=== PATIENT | female | born 1950 | race Asian ===

== ENCOUNTER 2023-07-13 12:53 | Emergency (ER) | payer OTHER ==
[~2023-07-13] VITALS: Ht 157.5 cm; Wt 65.8 kg
[2023-07-13 12:56] VITALS: BP 145/84; PULSE 80; RESP 17; TEMP 97.4; O2SAT 98
[2023-07-13 14:39] LABS: BASOPHILS % (AUTO) 0.6 % (0.0-2.0); EOSINOPHILS # (AUTO) 0.1 K/uL (0-0.4); EOSINOPHILS % (AUTO) 1.5 % (0.0-4.0); HEMATOCRIT 36.8 % (36-48); LYMPHOCYTES # (AUTO) 1.7 K/uL (2.5-16.5); LYMPHOCYTES % (AUTO) 22.8 % (20.5-51.1); MEAN CORPUSCULAR HEMOGLOBIN 29 pg (27-31); MEAN CORPUSCULAR HGB CONC 32 g/dL (33-37); MEAN CORPUSCULAR VOLUME 87.8 fL (80-94); MONOCYTES # (AUTO) 0.5 K/uL (0.8-1.0); MONOCYTES % (AUTO) 6.1 % (1.7-9.3); NEUTROPHILS # (AUTO) 5.2 K/uL (1.8-7.7); PLATELET COUNT (AUTO) 137 K/uL (140-450); RED CELL DISTRIBUTION WIDTH 13.4 % (11.6-13.7); WHITE BLOOD COUNT (AUTO) 7.5 K/uL (4.8-10.8)
[2023-07-13 14:50] LABS: INR 1.13 (0.8-1.2); PARTIAL THROMBOPLASTIN TIME 33.4 secs (22-35.6); PROTHROMBIN TIME 11.8 secs (10.8-13.4)
[2023-07-13 14:54] LABS: ALANINE AMINOTRANSFERASE 13 U/L (12-78); ALBUMIN 3.6 g/dL (3.4-5.0); ALKALINE PHOSPHATASE 148 U/L (50-136); ASPARTATE AMINOTRANSFERASE 24 U/L (15-37); CALCIUM 8.4 mg/dL (8.5-10.1); CARBON DIOXIDE 27.2 mmol/L (21-32); CHLORIDE 104 mmol/L (98-107); GLUCOSE 252 mg/dL (74-106); POTASSIUM 4.2 mmol/L (3.5-5.1); SODIUM SERUM 139 mmol/L (136-145); TOTAL BILIRUBIN 1.1 mg/dL (0.0-1.0); TOTAL PROTEIN, SERUM 7.6 g/dL (6.4-8.2); UREA NITROGEN, BLOOD 19 mg/dL (7-18)
[2023-07-13 15:05] LABS: CREATINE KINASE, TOTAL 80 U/L (26-192)
[2023-07-13] MEDS ORDERED: FAMO-92 PO (16:34)
[2023-07-13] MEDS ORDERED: BEN10 PO (16:34)
[2023-07-13] MEDS ORDERED: ONDA-188 SL (16:34)
[2023-07-13 16:51] VITALS: BP 137/80; PULSE 74; RESP 17; O2SAT 98
== END 2023-07-13 16:51 | disposition home or self-care (01) ==
LOC: MED 12:53
DX: K29.70 Gastritis, unspecified, without bleeding (principal); I11.9 Hypertensive heart disease without heart failure; E11.9 Type 2 diabetes mellitus without complications; Z79.4 Long term (current) use of insulin; Z79.899 Other long term (current) drug therapy; E03.9 Hypothyroidism, unspecified
CPT/HCPCS: 36415; 71046; 80053; 82550; 83880; 84484; 85025; 85610; 85730; 93005; 99285